=== PATIENT | male | born 1980 | race Caucasian/White ===

== ENCOUNTER 2019-01-08 08:45 | Inpatient (IN) | payer OTHER ==
[~2019-01-08] VITALS: Ht 172.7 cm; Wt 88.1 kg
[2019-01-17 12:30] VITALS: BP 123/75
== END 2019-01-17 17:00 | disposition left against medical advice (07) | DRG 871 ==
LOC: ED 10:10 → EDIP 10:14 → EDBD 10:14 → ED 10:15 → ICU 16:01 → 4NOR 01-10 11:43
PROVIDERS: ADMIT Internal Medicine; ATTEND Internal Medicine
PROC: 5A1945Z Respiratory Ventilation, 24-96 Consecutive Hours (ICD-10-PCS; principal; 2019-01-08)
PROC: 0BH17EZ Insertion of Endotracheal Airway into Trachea, Via Natural or Artificial Opening (ICD-10-PCS; 2019-01-08)
PROC: 009U3ZX Drainage of Spinal Canal, Percutaneous Approach, Diagnostic (ICD-10-PCS; 2019-01-08)
PROC: 0T9B70Z Drainage of Bladder with Drainage Device, Via Natural or Artificial Opening (ICD-10-PCS; 2019-01-08)
DX: A41.9 Sepsis, unspecified organism (principal); J69.0 Pneumonitis due to inhalation of food and vomit; J96.00 Acute respiratory failure, unspecified whether with hypoxia or hypercapnia; N17.0 Acute kidney failure with tubular necrosis; G92 Toxic encephalopathy; E87.0 Hyperosmolality and hypernatremia; Z99.11 Dependence on respirator [ventilator] status; M62.82 Rhabdomyolysis; E87.2 Acidosis; T40.5X1A Poisoning by cocaine, accidental (unintentional), initial encounter; K75.9 Inflammatory liver disease, unspecified; E87.6 Hypokalemia; M48.00 Spinal stenosis, site unspecified; E78.00 Pure hypercholesterolemia, unspecified; E16.2 Hypoglycemia, unspecified; Z53.21 Procedure and treatment not carried out due to patient leaving prior to being seen by health care provider; M79.7 Fibromyalgia; J45.909 Unspecified asthma, uncomplicated; F14.10 Cocaine abuse, uncomplicated; Z87.891 Personal history of nicotine dependence; Z87.440 Personal history of urinary (tract) infections; Y92.89 Other specified places as the place of occurrence of the external cause
CPT/HCPCS: 31500; 36415; 36600; 77002; 84145; 99291; J3490; J7620; 62270; 70450; 70496; 70498; 70553; 71045; 80048; 80053; 80307; 81001; 82140; 82550; 82803; 82945; 82962; 83036; 83605; 83690; 83735; 84100; 84157; 84439; 84443; 84478; 84484; 85025; 85610; 85730; 87040; 87070; 87081; 87205; 87252; 87324; 87532; 89051; 93005; 93306; 94002; 94003; 94640; 95819; 96374; 96375; A9585; G0378; J0133; J0696; J1644; J1650; J2250; J2704; J3010; J3370; Q9967; J0295; J0330; J2060; J3480; J7030; J7050